=== PATIENT | male | born 1955 | race Caucasian/White ===

== ENCOUNTER → 2019-02-22 | Outpatient (CLI) | payer OTHER, SELFPAY ==
--- NOTE | 2019-02-21 | IMM_PTH ---
PATIENT: MUSA PINK LOC: [facility] U#:[id number] AGE/SX: 63/M ROOM: RE02/22/[address]: Dr. Alfonso Locke MD : 1955 BED: DIS: 02/22/2019 SPEC #: [id number] RECD: 02/26/19 10:28 STATUS: GABY REQ #: [id number] AMANDEEP: 02/21/19 00:[address]: Alfonso Locke DEPT: IMMUNOHISTOCHEMISTRY RECD BY: Catrachita Quick ENTERED: 02/26/19 10:29 SP TYPE: IMMUNO OTHR DR: Dr. Luis Antonio Caban MD Tissues: A - PROSTATE RIGHT B - PROSTATE RIGHT C - PROSTATE RIGHT F - PROSTATE LEFT Procedures: 34BE12 (add) P40 (add) 34BE12 (initial) PHYSICIAN & INSTITUTION [place] [address] SPECIMEN INFORMATION: Tissue Source: A - Right prostate apex, B - Right prostate mid, C - Right prostate base, F - Left prostate mid Clinical Info: R97.20 Specimen Number: [id number] A, B, C & F CPT code: 30991, 82494 x7 METHODOLOGY: Deparaffinized sections of prefer/formalin-fixed tissue or PAP/DQ stained slides are incubated with monoclonal/polyclonal antibodies/oligonucleotide probes. Localization is made via biotin free immunoperoxidase method. Appropriate controls are performed and reacted as expected. Results on target cell population are indicated in the following table: RESULTS: ANTIBODY / CLONE RESULT Block A 34BE12 (34BE12) positive P40 (BC28) positive Block B 34BE12 (34BE12) positive P40 (BC28) positive Block C 34BE12 (34BE12) positive P40 (BC28) positive Block F 34BE12 (34BE12) positive P40 (BC28) positive These tests were developed and their performance characteristics determined by [facility]. They may not have been cleared or approved by the [place]. Food and Drug Administration. The FDA has determined that such clearance or approval is not necessary. INTERPRETATION: A. Right prostate, apex, core biopsy: Benign prostatic tissue. B. Right prostate, mid, core biopsy: Benign prostatic tissue. C. Right prostate, base, core biopsy: Benign prostatic tissue. F. Left prostate, base, core biopsy: Benign prostatic tissue. AM:soumya 02/27/19
--- NOTE | 2019-02-21 08:00 | PROSBIL_PTH ---
PATIENT: MUSA PINK LOC: [facility] U#:[id number] AGE/SX: 63/M ROOM: RE02/22/[address]: Dr. Alfonso Locke MD : 1955 BED: DIS: 02/22/2019 SPEC #: [id number] RECD: 02/21/19 16:49 STATUS: GABY RENick #: [id number] AMANDEEP: 02/21/19 08:[address]: Alfonso Locke DEPT: SURGICAL PATHOLOGY RECD BY: Kiko Black ENTERED: 02/22/19 10:03 SP TYPE: PROST BX NAEEM DR: Dr. Luis Antonio Caban MD Tissues: A - PROSTATE RIGHT B - PROSTATE RIGHT C - PROSTATE RIGHT D - PROSTATE LEFT E - PROSTATE LEFT F - PROSTATE LEFT Procedures: PROSTATE BX HEADER OPERATION: Prostate biopsy PRE-OP DIAGNOSIS: R97.20 TISSUE SUBMITTED: A - Right apex, B - Right mid, C - Right base, D - Left apex, E - Left mid, F - Left base MICROSCOPIC DIAGNOSIS A. Right prostate, apex, core biopsy: Glandular atrophy and mild chronic inflammation. See comment. B. Right prostate, mid, core biopsy: Glandular atrophy, mild chronic inflammation and focal acute inflammation. See comment. C. Right prostate, base, core biopsy: Glandular atrophy and mild chronic inflammation. See comment. D. Left prostate, apex, core biopsy: Glandular atrophy and mild chronic inflammation. E. Left prostate, mid, core biopsy: Mild chronic inflammation, glandular atrophy and focal acute inflammation. F. Left prostate, base, core biopsy: Glandular atrophy and mild chronic inflammation. See comment. AM:soumya 02/26/19 COMMENT A, B, C & F - Immunohistochemistry ([id number]) supports the above diagnosis. MICROSCOPIC DESCRIPTION Slides are reviewed. GROSS DESCRIPTION A - Received is one container designated prostate, right apex. The specimen consists of two elongated fragments of light patrick-white soft tissue measuring 1.2 and 1.5 cm in length and 0.1 cm in diameter. The specimen is totally submitted in one cassette. B - Received is one container designated prostate, right mid. The specimen consists of two elongated fragments of light patrick-white soft tissue measuring 1.2 and 1.5 cm in length and 0.1 cm in diameter. The specimen is totally submitted in one cassette. C - Received is one container designated prostate, right base. The specimen consists of one elongated fragment of light patrick-white soft tissue measuring 1 cm in length and 0.1 cm in diameter. The specimen is totally submitted in one cassette. D - Received is one container designated prostate, left apex. The specimen consists of two elongated fragments of light patrick-white soft tissue measuring 0.3 and 1.5 cm in length and 0.1 cm in diameter. The specimen is totally submitted in one cassette. E - Received is one container designated prostate, left mid. The specimen consists of two elongated fragments of light patrick-white soft tissue measuring 1 and 1.5 cm in length and 0.1 cm in diameter. The specimen is totally submitted in one cassette. F - Received is one container designated prostate, left base. The specimen consists of two elongated fragments of light patrick-white soft tissue measuring 1.5 and 2 cm in length and 0.1 cm in diameter. The specimen is totally submitted in one cassette. / SJ:rg 02/22/19 TC:2 CPT: 56336 x6
== END | disposition home or self-care (01) ==
LOC: LABSPEC 09:23
PROVIDERS: Family Provider Family Medicine; PCP Family Medicine; Referring Provider Urology; Visit Provider Urology
DX: N42.89 Other specified disorders of prostate (principal); N41.9 Inflammatory disease of prostate, unspecified; R97.20 Elevated prostate specific antigen [PSA]
CPT/HCPCS: 88305; 88341; 88342; G0416